=== PATIENT | female | born 2005 | race Two or more races ===

== ENCOUNTER 2025-01-04 20:42 | Emergency (ER) | payer OTHER ==
[~2025-01-04] VITALS: Ht 154.9 cm; Wt 59.0 kg
[2025-01-04 21:03] VITALS: BP 103/67; O2SAT 98
[2025-01-05] MEDS ORDERED: TETANUS & DIPHTHERIA TOX,ADULT 0.5 ML VIAL IM STA (00:30)
[2025-01-05] MEDS ORDERED: CEFAZOLIN SODIUM 1,000 MG VIAL IM STA (00:30)
[2025-01-05] MEDS ORDERED: DIPHTH,PERTUSS(ACELL),TET VAC 0.5 ML SYRINGE IM ONE (00:43)
[2025-01-05] MEDS ORDERED: CEFAZOLIN SODIUM 1,000 MG VIAL ONE (00:43)
[2025-01-05] MEDS ORDERED: LIDOCAINE HCL 1% 10ML VIAL ONE (00:43)
[2025-01-05] MEDS ORDERED: MORPHINE SULFATE 4 MG/ML VIAL IV STA (01:14)
[2025-01-05] MEDS ORDERED: HYDROGEN PEROXIDE 473 ML BOTTLE TOP ONE (01:49)
== END 2025-01-05 02:16 | disposition home or self-care (01) ==
LOC: ER 20:42
DX: S90.922A Unspecified superficial injury of left foot, initial encounter (principal); X58.XXXA Exposure to other specified factors, initial encounter; Y93.89 Activity, other specified; Y92.89 Other specified places as the place of occurrence of the external cause; Y99.9 Unspecified external cause status